=== PATIENT | female | born 1975 ===

== ENCOUNTER 2019-02-15 08:00 | Outpatient (CLI) | payer MEDICAID | END 2019-02-15 23:59 | disposition home or self-care (01) | LOC: D.MAMMO 08:00 | PROVIDERS: ATTEND Nurse Practitioner Women's Health | DX: Z12.31 Encounter for screening mammogram for malignant neoplasm of breast (principal) ==

== ENCOUNTER 2019-03-22 10:00 | Outpatient (CLI) | payer MEDICAID | END 2019-03-22 10:30 | disposition home or self-care (01) | LOC: D.MAMMO 10:00 | PROVIDERS: ATTEND Nurse Practitioner Women's Health | DX: R92.8 Other abnormal and inconclusive findings on diagnostic imaging of breast (principal) ==